=== PATIENT | female | born 1990 | race Caucasian/White ===

== ENCOUNTER 2017-04-08 14:29 | Outpatient (CLI) | payer OTHER ==
[~2017-04-08 14:29] MED LIST: LABETALOL HCL200 MG PO; NAPROXEN SODIU550 MG PO
== END 2017-04-08 14:33 | disposition home or self-care (01) ==
LOC: LAB 14:29
DX: Z34.80 Encounter for supervision of other normal pregnancy, unspecified trimester (principal)

== ENCOUNTER 2017-04-20 12:03 | Outpatient (CLI) | payer OTHER | END 2017-04-20 12:10 | disposition home or self-care (01) | LOC: LAB 12:03 | DX: Z34.80 Encounter for supervision of other normal pregnancy, unspecified trimester (principal) ==

== ENCOUNTER → 2017-04-27 | Emergency (ER) | payer OTHER ==
[~2017-04-27] VITALS: Ht 154.9 cm; Wt 107.5 kg
== END | disposition home or self-care (01) ==
LOC: ER 04:37
DX: J11.1 Influenza due to unidentified influenza virus with other respiratory manifestations (principal)

== ENCOUNTER 2017-05-06 10:00 | Inpatient (IN) | payer OTHER ==
[~2017-05-06] VITALS: Ht 154.9 cm; Wt 3.2 kg
[2017-05-07] MEDS ORDERED: PRENATABS FA T1 EACH PO (09:02)
[2017-05-09] MEDS ORDERED: MOTRIN IB200 MG PO (09:30)
== END 2017-05-09 10:54 | disposition home or self-care (01) | DRG 766 ==
LOC: O/R 05-07 06:58 → OB/GYN 05-07 10:00
PROVIDERS: Specialist
PROC: 0UB90ZZ Excision of Uterus, Open Approach (ICD-10-PCS; 2017-05-07)
PROC: 4A1HXCZ Monitoring of Products of Conception, Cardiac Rate, External Approach (ICD-10-PCS; 2017-05-07)
PROC: 10D00Z1 Extraction of Products of Conception, Low, Open Approach (ICD-10-PCS; principal; 2017-05-07 08:45)
DX: O34.211 Maternal care for low transverse scar from previous cesarean delivery (principal); O34.13 Maternal care for benign tumor of corpus uteri, third trimester; O48.0 Post-term pregnancy; Z3A.40 40 weeks gestation of pregnancy; Z37.0 Single live birth

== ENCOUNTER 2018-08-20 10:34 | Outpatient (CLI) | payer OTHER ==
[~2018-08-20 10:34] MED LIST changes: +MOTRIN IB200 MG PO; +PRENATABS FA T1 EACH PO
== END 2018-08-20 10:48 | disposition home or self-care (01) ==
LOC: LAB 10:34
DX: Z34.80 Encounter for supervision of other normal pregnancy, unspecified trimester (principal)

== ENCOUNTER 2018-09-15 11:59 | Outpatient (CLI) | payer OTHER | END 2018-09-15 12:06 | disposition home or self-care (01) | LOC: LAB 11:59 | DX: Z34.80 Encounter for supervision of other normal pregnancy, unspecified trimester (principal) ==

== ENCOUNTER 2018-10-31 09:09 | Outpatient (CLI) | payer OTHER | END 2018-10-31 09:11 | disposition home or self-care (01) | LOC: MAMO-SONO 09:09 | DX: Z34.80 Encounter for supervision of other normal pregnancy, unspecified trimester (principal) ==

== ENCOUNTER → 2018-10-31 10:44 | Outpatient (CLI) | payer OTHER | END | disposition home or self-care (01) | LOC: LAB 10:44 | DX: Z34.80 Encounter for supervision of other normal pregnancy, unspecified trimester (principal) ==

== ENCOUNTER 2019-01-25 09:57 | Outpatient (CLI) | payer OTHER | END 2019-01-25 10:01 | disposition home or self-care (01) | LOC: LAB 09:57 | DX: Z34.80 Encounter for supervision of other normal pregnancy, unspecified trimester (principal) ==

== ENCOUNTER 2019-02-23 18:08 | Inpatient (IN) | payer OTHER ==
[~2019-02-23] VITALS: Ht 154.9 cm; Wt 108.9 kg
== END 2019-03-13 14:11 | disposition home or self-care (01) | DRG 783 ==
LOC: LDR 18:08 → OB/GYN 18:08
PROVIDERS: ADMIT Specialist
PROC: BT43ZZZ Ultrasonography of Bilateral Kidneys (ICD-10-PCS; 2019-02-23)
PROC: BW40ZZZ Ultrasonography of Abdomen (ICD-10-PCS; 2019-02-23)
PROC: BY4FZZZ Ultrasonography of Third Trimester, Single Fetus (ICD-10-PCS; 2019-02-23)
PROC: 4A1HXCZ Monitoring of Products of Conception, Cardiac Rate, External Approach (ICD-10-PCS; 2019-02-23)
PROC: B246ZZZ Ultrasonography of Right and Left Heart (ICD-10-PCS; 2019-02-24)
PROC: 0UL70ZZ Occlusion of Bilateral Fallopian Tubes, Open Approach (ICD-10-PCS; 2019-03-10)
PROC: 10D00Z1 Extraction of Products of Conception, Low, Open Approach (ICD-10-PCS; principal; 2019-03-10 07:00)
DX: O82 Encounter for cesarean delivery without indication (principal); A41.51 Sepsis due to Escherichia coli [E. coli]; O23.03 Infections of kidney in pregnancy, third trimester; O98.82 Other maternal infectious and parasitic diseases complicating childbirth; B96.29 Other Escherichia coli [E. coli] as the cause of diseases classified elsewhere; Z3A.36 36 weeks gestation of pregnancy; Z37.0 Single live birth; Z30.2 Encounter for sterilization

== ENCOUNTER 2019-08-18 05:56 | Emergency (ER) | payer OTHER ==
[~2019-08-18] VITALS: Ht 154.9 cm; Wt 108.9 kg
[2019-08-18] MEDS ORDERED: MOBIC15 MG PO (07:49)
[2019-08-18] MEDS ORDERED: NORFLEX100MG PO (07:49)
== END 2019-08-18 08:08 | disposition home or self-care (01) ==
LOC: ER 05:56
DX: M62.838 Other muscle spasm (principal); M25.511 Pain in right shoulder

== ENCOUNTER 2020-09-23 17:10 | Emergency (ER) | payer OTHER ==
[~2020-09-23] VITALS: Ht 154.9 cm; Wt 108.9 kg
[~2020-09-23 17:10] MED LIST changes: +MOBIC15 MG PO; +NORFLEX100MG PO
[2020-09-23] MEDS ORDERED: ORPHENADRINE C100 MG PO (19:58)
[2020-09-23] MEDS ORDERED: KETO10TA2 PO (19:58)
== END 2020-09-23 20:07 | disposition home or self-care (01) ==
LOC: ER 17:10
DX: S93.402A Sprain of unspecified ligament of left ankle, initial encounter (principal); X50.0XXA Overexertion from strenuous movement or load, initial encounter; Y93.89 Activity, other specified; Y92.89 Other specified places as the place of occurrence of the external cause; Y99.8 Other external cause status